=== PATIENT | male | born 1940 | race Caucasian/White ===

== ENCOUNTER 2018-07-10 18:03 | Emergency (ER) | payer MEDICARE, OTHER ==
[2018-07-10] MEDS ORDERED: BUFFERED LIDOCAINE 10 ML SYRINGE SUBQ ONE (19:21)
[2018-07-10] MEDS ORDERED: cephALEXin 250 MG CAPSULE PO STA (19:21)
[2018-07-10] MEDS ORDERED: TETANUS/DIPHTHERIA/PERTUSSIS 0.5 ML SYRINGE IM ONE (19:21)
--- NOTE | 2018-07-10 19:23 | ED Physician Documentation ---
PD HPI UPPER EXT INJURY - Stated complaint Stated Complaint: ARM LAC - Chief complaint Chief Complaint: Laceration - History obtained from History obtained from: Patient, Family () - History of Present Illness Location: Right, Elbow Type of injury: Fall (ladder came out from under him- Hit his elbow directly on a step and injured it and also hit his right hand. Tetanus is not up-to-date.) Review of Systems Constitutional: reports: Reviewed and negative Cardiac: reports: Reviewed and negative Respiratory: reports: Reviewed and negative PD PAST MEDICAL HISTORY - Past Medical History Past Medical History: Yes Respiratory: Sleep apnea, CPAP use Neuro: None GI: Colon polyps HEENT: None Musculoskeletal: Osteoarthritis - Past Surgical History Past Surgical History: Yes General: Colonoscopy - Present Medications Home Medications: Ambulatory Orders Medication Instructions Recorded Confirmed No Known Home Medications 07/10/18 07/10/18 - Allergies Allergies/Adverse Reactions: Allergies Allergy/AdvReac Type Severity Reaction Status Date / Time Sulfa (Sulfonamide Allergy Intermediate Nausea Verified 07/10/18 19:06 Antibiotics) - Social History Does the pt smoke?: No Smoking Status: Never smoker Does the pt drink ETOH?: No Does the pt have substance abuse?: No - POLST Patient has POLST: No PD ED PE NORMAL - Vitals Vital signs reviewed: Yes - General General: Alert and oriented X 3, No acute distress - Neck Neck: Supple, no meningeal sign, No bony TTP - Extremities Extremities: Other (On the posterior surface of the right elbow inferior to the olecranon there is a 4 cm curved laceration that is deep without bony tenderness or limited range of motion. He is also tender over the distal dorsal carpal row on that side. No other extremity tenderness.) - Neuro Neuro: Alert and oriented X 3, Normal speech Results - Vitals Vitals: Vital Signs - 24 hr 07/10/18 19:00 Temperature 36.5 C Heart Rate 71 Respiratory 16 Rate Blood Pressure 135/69 H O2 Saturation 96 Oxygen O2 Source Room air - Rads (name of study) X-rays of the right elbow and right hand Radiology: EMP read contemporaneously (No fracture) Procedures - Laceration (location) R elbow Length in cm: 4 Wound type: Curved, Other (It did appear to access the olecranon bursa and therefore he was started on antibiotics. He is irrigated with a full liter of saline.) Neurovascular status: Sensory intact, Motor intact, Vascular intact Anesthesia: Lidocaine 1%, With bicarb Wound Preparation: Betadine, Irrigated copiously NS Skin layer closure: Nylon, Running, Size #-0 - enter number (3-0) Other: Tetanus booster given Complexity: Simple PD MEDICAL DECISION MAKING - Sepsis Event Vital Signs: Vital Signs - 24 hr 07/10/18 19:00 Temperature 36.5 C Heart Rate 71 Respiratory 16 Rate Blood Pressure 135/69 H O2 Saturation 96 Oxygen O2 Source Room air Departure - Departure Disposition: 01 Home, Self Care Clinical Impression: Laceration Condition: Good Record reviewed to determine appropriate education?: Yes Instructions: ED Laceration All Comments: Come back for any signs of infection which would include: Redness, swelling, drainage, increased pain, or fevers. Follow-up with your physician in 14 days for suture removal. Your blood pressure was elevated today on check into the emergency department. This does not mean that you have hypertension, it is a common phenomenon to come to the emergency department and have elevated blood pressure. I recommend that you see your primary care physician within the week to have it rechecked when you are feeling better.
--- NOTE | 2018-07-10 19:55 | XRAY Report ---
Reason: R elbow/hand inj Procedure Date: 07/10/2018 Accession Number: [id number] / [id number] Procedure: XR - Elbow 3 View RT CPT Code: FULL RESULT: EXAM: RIGHT ELBOW RADIOGRAPHY EXAM DATE: 07/10/2018 07:45 PM. CLINICAL HISTORY: R elbow/hand inj. COMPARISON: None. TECHNIQUE: 3 views. FINDINGS: Bones: No cortical step-off or fracture. Joints: Alignment and joint space appears satisfactory. Soft Tissues: There is ossification dorsal to the olecranon and at the medial epicondyle. There is soft tissue swelling dorsal to the olecranon. IMPRESSION: 1. Spurring of the medial epicondyle and dorsal olecranon. No acute fracture. RADIA
--- NOTE | 2018-07-10 19:57 | XRAY Report ---
Reason: R elbow/hand inj Procedure Date: 07/10/2018 Accession Number: [id number] / [id number] Procedure: XR - Hand 3 View RT CPT Code: FULL RESULT: EXAM: RIGHT HAND RADIOGRAPHY EXAM DATE: 07/10/2018 07:45 PM. CLINICAL HISTORY: R elbow/hand inj. Pain. COMPARISON: None. TECHNIQUE: 3 views. FINDINGS: Bones: No acute fracture. Joints: There is degenerative disease and spurring with sclerosis of the first interphalangeal joint. Soft Tissues: No soft tissue foreign body. IMPRESSION: No acute fracture or subluxation. RADIA
[2018-07-10 20:42] VITALS: BP 144/70
== END 2018-07-10 20:50 | disposition home or self-care (01) ==
LOC: ED 18:03
DX: S51.011A Laceration without foreign body of right elbow, initial encounter (principal); W19.XXXA Unspecified fall, initial encounter; W22.8XXA Striking against or struck by other objects, initial encounter; R03.0 Elevated blood-pressure reading, without diagnosis of hypertension; Z23 Encounter for immunization
CPT/HCPCS: 12002; 73080; 73130; 90471; 90715; 99283; A9270

== ENCOUNTER 2018-07-24 07:24 | Outpatient (CLI) | payer MEDICARE, OTHER ==
[2018-07-24 13:44] LABS: PSA FREE 0.58 ng/mL (0.16-2.81)
[2018-07-24 13:45] LABS: PSA TOTAL 2.2 ng/mL (0.000-2.000)
== END 2018-07-24 07:25 | disposition home or self-care (01) ==
LOC: LAB.F 07:24
PROVIDERS: ATTEND Physician Assistant Medical
DX: R97.20 Elevated prostate specific antigen [PSA] (principal)
CPT/HCPCS: 36415; 84154

== ENCOUNTER 2020-04-30 07:43 | Outpatient (CLI) | payer MEDICARE, OTHER ==
[2020-04-30 15:14] LABS: BASOPHILS % (AUTO) 0.4 %; EOSINOPHILS # (AUTO) 0.1 10^3/uL (0.0-0.7); EOSINOPHILS % (AUTO) 1.5 %; LYMPHOCYTES # (AUTO) 1.6 10^3/uL (1.5-3.5); LYMPHOCYTES % (AUTO) 29.4 %; MEAN CORPUSCULAR HEMOGLOBIN 29.9 pg (27.0-31.0); MEAN CORPUSCULAR HGB CONC 31.1 g/dL (32.0-36.0); MEAN PLATELET VOLUME 9.8 fL (7.4-11.4); MONOCYTES # (AUTO) 0.4 10^3/uL (0.0-1.0); MONOCYTES % (AUTO) 7.4 %; NEUTROPHILS # (AUTO) 3.3 10^3/uL (1.5-6.6); NEUTROPHILS % (AUTO) 61.1 %; PLT - PLATELET COUNT 217 10^3/uL (130-450); RED BLOOD COUNT 5.02 10^6/uL (4.70-6.10); RED CELL DISTRIBUTION WIDTH 13.8 % (12.0-15.0); WHITE BLOOD COUNT 5.4 x10^3/uL (4.8-10.8)
[2020-04-30 15:42] LABS: ALBUMIN 4.1 g/dL (3.2-5.5); ALBUMIN/GLOBULIN RATIO 1.2 (1.0-2.2); ALKALINE PHOSPHATASE 55 IU/L (42-121); ALT ALANINE AMINOTRANSFERASE 31 IU/L (10-60); AST ASPARTATE AMINOTRANSFERASE 30 IU/L (10-42); BILIRUBIN,TOTAL 1.1 mg/dL (0.2-1.0); BUN - BLOOD UREA NITROGEN 17 mg/dL (6-20); CALCIUM 9.2 mg/dL (8.5-10.3); CARBON DIOXIDE - CO2 29 mmol/L (21-32); CHLORIDE 105 mmol/L (101-111); CHOL/HDL RATIO 2.4 (<5.0); CHOLESTEROL 128 mg/dL; CREATININE 0.8 mg/dL (0.6-1.2); GLUCOSE 102 mg/dL (70-100); HDL CHOLESTEROL 54 mg/dL; LDL CHOLESTEROL,CALCULATED 64 mg/dL; LDL/HDL RATIO 1.2 (<3.6); SODIUM 139 mmol/L (135-145); TOTAL PROTEIN 7.4 g/dL (6.7-8.2); VLDL CHOLESTEROL 10 mg/dL
== END 2020-04-30 07:44 | disposition home or self-care (01) ==
LOC: LAB.S 07:43
PROVIDERS: ATTEND Physician Assistant
DX: R97.20 Elevated prostate specific antigen [PSA] (principal); R73.01 Impaired fasting glucose; K76.0 Fatty (change of) liver, not elsewhere classified; D50.9 Iron deficiency anemia, unspecified
CPT/HCPCS: 36415; 80053; 80061; 83721; 84153; 84443; 85025

== ENCOUNTER 2021-06-24 15:10 | Outpatient (CLI) | payer MEDICARE, OTHER | END 2021-06-24 15:11 | disposition EMS.NT | LOC: EMS 15:10 | DX: S60.511A Abrasion of right hand, initial encounter (principal); M25.571 Pain in right ankle and joints of right foot; V28.4XXA Motorcycle driver injured in noncollision transport accident in traffic accident, initial encounter; Y93.55 Activity, bike riding; Y92.410 Unspecified street and highway as the place of occurrence of the external cause ==

== ENCOUNTER 2024-03-04 14:13 | Emergency (ER) | payer MEDICARE, OTHER ==
--- NOTE | 2024-03-04 14:56 | ED Physician Documentation ---
PD HPI UPPER EXT INJURY - Stated complaint Stated Complaint: LT HAND CUT - Chief complaint Chief Complaint: Laceration - History obtained from History obtained from: Patient - History of Present Illness Location: Left, Hand (thenar area) Type of injury: Laceration (using hand drill and the bit slipped and went into thenar palmarea causing lcaeration that is still bleeding despire pressure.) Where injury occurred: Home Timing - onset: Today Timing - details: Abrupt onset, Still present Worsened by: Moving, Palpating Associated symptoms: No: Weakness, Numbness Similar symptoms before: Has not had sx before Review of Systems Neurologic: denies: Focal weakness, Numbness PD PAST MEDICAL HISTORY - Past Medical History Past Medical History: Yes Respiratory: Sleep apnea, CPAP use Neuro: None GI: Colon polyps HEENT: None Musculoskeletal: Osteoarthritis - Past Surgical History Past Surgical History: Yes General: Colonoscopy - Present Medications Home Medications: Ambulatory Orders Medication Instructions Recorded Confirmed No Known Home Medications 03/04/24 03/04/24 - Allergies Allergies/Adverse Reactions: Allergies Allergy/AdvReac Type Severity Reaction Status Date / Time Sulfa (Sulfonamide Allergy Intermediate Nausea Verified 03/04/24 14:34 Antibiotics) - Social History Does the pt smoke?: No Smoking Status: Never smoker Does the pt drink ETOH?: Yes ETOH Use: Beer Does the pt have substance abuse?: No - Immunizations Immunizations are current?: Yes - POLST Patient has POLST: No PD ED PE NORMAL - Vitals Vital signs reviewed: Yes - General General: Alert and oriented X 3, No acute distress, Well developed/nourished - Derm Derm: Normal color, Warm and dry - Extremities Extremities: Other (thenar area of left palm with 2 cm laceration to fatty tissue without FB. Mild oozing bleeding from surface vessel. No deep structures inolved. ) - Neuro Neuro: No motor deficit, No sensory deficit Results - Vitals Vitals: Vital Signs - 24 hr 03/04/24 03/04/24 14:35 15:33 Temperature 36.5 C 36.5 C Heart Rate 52 L 56 L Respiratory 16 16 Rate Blood Pressure 154/63 H 140/60 H O2 Saturation 98 100 Oxygen O2 Source Room air Procedures - Laceration (location) left thenar palm Length in cm: 2 Wound type: Linear, Into subcut fat, Clean Neurovascular status: Sensory intact, Motor intact, Vascular intact Tendon involvement: Tendon intact Anesthesia: Lidocaine 1% with epi Wound preparation: Wound explored, To the base (cleansed generaously with tap water.), Other Skin layer closure: Nylon, Running, Size #-0 - enter number (4), Sutures - enter # (7) Other: Patient tolerated well, No complications, Neurovascular intact, Tetanus UTD PD Medical Decision Making - ED course Complexity details: considered differential (base thenar lac to fatty tissue but does open with thumb movement and has mild bleeding still. ), d/w patient Departure - Departure Disposition: 01 Home, Self Care Clinical Impression: Hand laceration Qualifiers: Encounter type: initial encounter Foreign body presence: without foreign body Laterality: left Qualified Code(s): S61.412A - Laceration without foreign body of left hand, initial encounter Condition: Stable Record reviewed to determine appropriate education?: Yes Instructions: ED Laceration Hand Comments: It is okay to wash and shower. Clean off the wound twice a day with soap and water, or peroxide and water. Apply some antibiotic ointment to it to keep it moist. Also to watch for signs of infection such as purulence, redness or increasing pain. Return to your primary care or the ER at the specified time for suture removal. Suture removal 8 to 10 days. Tylenol ibuprofen if needed for pains. Forms: PCP List Discharge Date/Time: 03/04/24 15:33
[2024-03-04] MEDS: LIDOCAINE 1%-EPI 1:100000 20 ML MDV SUBQ STA (15:11)
[2024-03-04 15:34] VITALS: BP 140/60; O2SAT 100
== END 2024-03-04 15:33 | disposition home or self-care (01) ==
LOC: ED 14:13
DX: S61.412A Laceration without foreign body of left hand, initial encounter (principal); W29.8XXA Contact with other powered hand tools and household machinery, initial encounter; Y92.009 Unspecified place in unspecified non-institutional (private) residence as the place of occurrence of the external cause
CPT/HCPCS: 12001; 99283